=== PATIENT | male | born 1995 | race African-American/Black ===

== ENCOUNTER 2021-11-28 09:39 | Emergency (ER) | payer OTHER, SELFPAY ==
--- NOTE | ~2021-11-28 | XR_ITS ---
EXAMINATION: XR ELBOW, RIGHT CLINICAL INFORMATION: Right forearm numbness. Elbow pain. COMPARISON: None TECHNIQUE: AP, lateral, and oblique views of the right elbow. FINDINGS: The bones and soft tissues are normal. No fracture or joint effusion. Alignment is anatomic. Joint spaces are maintained. XR/XR elbow RT 2V IMPRESSION: Unremarkable right elbow x-rays.
--- NOTE | ~2021-11-28 | XR_ITS ---
EXAMINATION: XR SHOULDER, RIGHT CLINICAL INFORMATION: Pain. COMPARISON: None TECHNIQUE: AP external rotation, Grashey, scapular Y, and axillary views of the right shoulder. FINDINGS: The bones and soft tissues are normal. No fracture. Glenohumeral and acromioclavicular alignment is anatomic with normal joint space. No abnormal soft tissue calcifications. XR/XR shoulder RT min 2V IMPRESSION: Unremarkable examination.
[2021-11-28 10:10] VITALS: BP 127/77; PULSE 68; RESP 16; TEMP 36; O2SAT 99; BMI 34.0
--- NOTE | 2021-11-28 13:40 | ED.EXTPRO ---
HPI - Extremity Problem General Chief complaint: Extremity Injury, Upper Stated complaint: [facility] Shoulder Arm Hand Pain Time Seen by Provider: 11/28/21 13:40 Source: patient Mode of arrival: ambulatory Limitations: no limitations History of Present Illness HPI Narrative: 26-year-old male with a past medical history of surgery on right wrist. Patient has a scar on the volar surface of right wrist that he states is from a cut with glass where tendons and nerves were damaged and he delayed getting surgery for it. Patient states today he has had pain for the last 2 weeks in his right arm. 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 Patient has an ache in his elbow and when he rests his elbow his forearm goes numb. Patient states when he relaxes his right shoulder his entire arm feels numb and is painful. Related Data Previous Rx's Medication Instructions Recorded ketorolac 10 mg tablet 10 mg PO Q6H 5 days #20 tabs 11/28/21 Allergies Allergy/AdvReac Type Severity Reaction Status Date / Time No Known Allergies Allergy Verified 11/28/21 10:13 Review of Systems Constitutional: Constitutional: Denies body ache(s), Denies chills, Denies fatigue, Denies fever(s), Denies malaise and Denies weakness Eyes: Eyes: Denies diplopia Cardiovascular: Cardiovascular: Denies chest pain, Denies syncope, Denies leg edema, Denies lightheadedness, Denies Loss of Consciousness, Denies palpitations and Denies dyspnea Respiratory: Respiratory: Denies chest congestion, Denies cough and Denies dyspnea Musculoskeletal: Musculoskeletal: Reports arthralgias, Reports numbness and Reports radiating pain into limb Neurologic: Denies confusion, Denies syncope, Reports numbness and Denies weakness Psychiatric: Psychiatric: Denies anxiety, Denies confusion and Denies depression Endocrine: Endocrine: Denies fatigue and Denies palpitations [facility] Social History Social History Alcohol intake: never Patient Tobacco Use Status: Never used Tobacco Substance Use Type: Marijuana Last Used Substance: Just Prior to Admission Advance Directives: No Advance Directives Information Provided: Yes Physical Exam Vital Signs: Vital Signs: Last Vital Signs Temp 96.8 F 11/28/21 10:10 Pulse 68 11/28/21 10:10 Resp 16 11/28/21 10:10 BP 127/77 11/28/21 10:10 Pulse Ox 99 11/28/21 10:10 O2 Del Method 11/28/21 10:10 BMI result Body Mass Index 34.0 Const: General: No confusion Nutritional Appearance: well nourished Orientation/consciousness: No confusion Limitations: no limitations Eyes: Conjunctivae: conjunctivae normal Pupils: Equal, round and reactive pupils present EOM: EOMs intact bilaterally Neck: Neck: Yes full ROM, Yes no lymphadenopathy and Yes supple Resp: Effort & Inspection: normal respiratory effort and able to speak in complete sentences Auscultation: clear to auscultation bilaterally, no crackles, no rales, no rhonchi and no wheezes Cardio: Rate: regular rate Rhythm: regular rhythm Heart sounds: S1 normal heart sound present and S2 normal heart sound present Skin: General skin exam: no rashes or lesions noted Neuro: General: No confusion Cranial nerves: Yes Equal, round and reactive pupils present Extrem: Right upper extremity: normal to inspection, normal capillary refill, no joint enlargement, shoulder/upper arm Details: tenderness Location: of the proximal humerus, axillary nerve sensory function normal and abnormal ROM Details: pain with active ROM Details: in ABduction; no swelling and elbow/forearm Details: normal to inspection and abnormal ROM Details: pain with active ROM during Details: with flexion; no tenderness, no swelling, no unusual warmth and no crepitus; no cyanosis and no edema Psych: Appearance: grossly normal Affect: normal affect Attitude: cooperative Thought process: Normal thought process present Course Course Course Narrative: 26-year-old male with 2 weeks of right arm pain. On exam, patient has right upper extremity intact pulses, sensation, and DTRs. Patient has pain when he flexes his elbow, patient is tender over his right proximal humerus, and has a positive empty can sign, and can only abduct his right arm 90 degrees. X-rays are negative. Patient's pain treated with ketorolac, follow-up with ibuprofen. Sling given for comfort, counseled take arm out of sling 10 times a day and do pendulum exercises. Rest, reduce repetitive motion at work, return to emergency room if worsening pain, or new or concerning symptoms. Patient verbalized agreement understanding of plan. Reevaluation(s) Reevaluation #1: FINDINGS: The bones and soft tissues are normal. No fracture. Glenohumeral and acromioclavicular alignment is anatomic with normal joint space. No abnormal soft tissue calcifications.? XR/XR shoulder RT min 2V IMPRESSION: Unremarkable examination. FINDINGS: The bones and soft tissues are normal. No fracture or joint effusion. Alignment is anatomic. Joint spaces are maintained.? XR/XR elbow RT 2V IMPRESSION: Unremarkable right elbow x-rays. Discharge Plan Discharge Clinical Impression: Paresthesia of right arm, Rotator cuff disorder Patient Disposition: Home, Self-Care Instructions: Rotator Cuff Injury (ED), Rotator Cuff Injury Exercises (DC) Additional Instructions: I have referred you to orthopedics. They should be calling you on Tuesday. If you do not hear from them by Tuesday please call them at the following number [phone] use the sling for comfort, take your arm out of the sling at least 10 times a day and move your arm around. Limit use of your right arm when you are working so you do not re-injure it please return to the emergency room for any new or concerning symptoms Prescriptions: New ketorolac 10 mg tablet 10 mg PO Q6H 5 Days Qty: 20 0RF Referrals: Janiya Garrison MD [Physician] - Stand Alone Forms: Work/School Release
[2021-11-28] MEDS: Ketorolac Tromethamine 30 MG/ML VIAL IM (14:56)
== END 2021-11-28 15:41 | disposition home or self-care (01) ==
PROVIDERS: Emergency Provider Student in an Organized Health Care Education/Training Program
DX: R20.2 Paresthesia of skin (principal); S46.001A Unspecified injury of muscle(s) and tendon(s) of the rotator cuff of right shoulder, initial encounter; X50.0XXA Overexertion from strenuous movement or load, initial encounter; F12.90 Cannabis use, unspecified, uncomplicated; Y93.89 Activity, other specified; Y92.89 Other specified places as the place of occurrence of the external cause; Y99.0 Civilian activity done for income or pay
CPT/HCPCS: 73030; 73070; 96372; 99283; 99284; J1885

== ENCOUNTER 2022-10-27 09:28 | Emergency (ER) | payer MEDICAID, SELFPAY ==
[2022-10-27 09:34] VITALS: BP 155/97; PULSE 113; RESP 18; TEMP 36.8; O2SAT 100; BMI 34.5
--- NOTE | 2022-10-27 10:56 | PC.NURSE ---
Patient resting on stretcher calm and cooperative. C/O abdominal pain that comes and goes, denies nausea at this time. Patient alert and oriented, follows commands without issue.
--- NOTE | 2022-10-27 11:05 | ED.ABDPAIN ---
HPI - Abdominal Pain General Chief Complaint: Abdominal Pain Stated Complaint: Abdominal Pain Time Seen by Provider: 10/27/22 10:27 Source: patient Mode of arrival: ambulatory Limitations: no limitations History of Present Illness HPI narrative: 27-year-old male presents with umbilical pain. Symptoms started several weeks ago. The pain is intermittent. Worse with heavy lifting. The pain does not radiate. The pain is sharp and aching in nature. Sometimes associated with nausea but no vomiting. Is passing stool and flatus. Times he has diarrhea. He has had no fevers or chills. She has never had this before. Patient thinks he has an hernia. Related Data Previous Rx's Medication Instructions Recorded ketorolac 10 mg tablet 10 mg PO Q6H 5 days #20 tabs 11/28/21 Allergies Allergy/AdvReac Type Severity Reaction Status Date / Time No Known Allergies Allergy Verified 11/28/21 10:13 Review of Systems Review of Systems CONSTITUTIONAL: Denies weight loss, fever and chills. HEENT: Denies changes in vision and hearing. RESPIRATORY: Denies SOB and cough. CV: Denies palpitations no CP. GI: See HPI : Denies dysuria and urinary frequency. MSK: Denies myalgia and joint pain. SKIN: Denies rash and pruritus. NEUROLOGICAL: Denies headache and syncope. PSYCHIATRIC: Denies recent changes in mood. Denies anxiety and depression. All other ROS are negative unless in HPI [facility] Social History Social History Alcohol intake: current Alcohol intake frequency: holidays/special occasions only Patient Tobacco Use Status: Never used Tobacco Smoked in Last 30 Days: No Use of substances other than those prescribed or required for medical reasons: Yes Substance Use Type: Marijuana Advance Directives: No Advance Directives Information Provided: Yes Physical Exam ED Vital Signs: Vital Signs - 24 hr 10/27/22 09:34 Temperature 98.2 F Pulse Rate 113 H Respiratory Rate 18 Blood Pressure 155/97 H Pulse Oximetry 100 Oxygen Delivery Method Room Air BMI result Body Mass Index 34.5 GEN: Well developed, no acute distress, alert, oriented HEENT: Normocephalic, atraumatic, normal external ears, nose appears normal, no oropharyngeal edema or exudates Eyes: Normal to appearance Neck: Supple, no lymphadenopathy Respiratory: Talks in complete sentences, no respiratory distress, clear to auscultation bilaterally Cardiovascular: Regular rate and rhythm, no murmurs rubs or gallops Abdomen: Soft, palpable umbilical hernia no palpable bowel likely fat containing, no rebound, no guarding, there is tenderness. Back: No CVA tenderness Extremities: No clubbing cyanosis or edema Neurologic: No focal neurologic deficits, cranial nerves 2-12 intact, strength is 5/5 bilaterally Skin: No rash Course Course Course Narrative: Patient presents with an umbilical hernia. Is reducible. I do not suspect that contains small bowel. Most likely fat containing. I contacted general surgery recommends follow-up in the office in 1-2 days for possible elective procedure. I counseled the patient regarding obstructive symptomatology. Will discharge at this time. I have recommended no weight-bearing heavier than 15 lb and an umbilical hernia belt. Medical Decision Making Medical Decision Making MDM Narrative: Patient presents with an umbilical hernia. Is reducible. His likely fat containing. Doubt small bowel obstruction. Abdomen is otherwise soft, nontender, nondistended. There is no emergent indication for imaging at this time. I did contact General surgery who recommends follow-up. 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
== END 2022-10-27 11:45 | disposition home or self-care (01) ==
PROVIDERS: Emergency Provider Emergency Medicine
DX: K42.9 Umbilical hernia without obstruction or gangrene (principal); R10.33 Periumbilical pain
CPT/HCPCS: 99282; 99284